=== PATIENT | male | born 2000 | race Caucasian/White ===

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

== ENCOUNTER → 2019-01-02 | Emergency (ER) | payer SELFPAY ==
[~2019-01-02] MED LIST changes: +[UNRECOGNIZED DRUG - CODE] PO
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
--- NOTE | 2019-01-02 21:31 | RADIOLOGY IMAGING REPORT ---
FACILITY: [facility] PATIENT NAME: Doug Win : 2000 MR: [id number] V: [id number] EXAM DATE: ORDERING PHYSICIAN: LY DE JESUS TECHNOLOGIST: Location: [facility] Patient: Doug Win : 2000 Visit/Account:[id number] Date of Sevice: 01/02/2019 INDICATION: fall, pain, swelling EXAM DATE: 01/02/2019 8:42 PM COMPARISON: None. FINDINGS: 3 views right hand. Mineralization is normal. No acute alignment abnormality or fracture. Abnormal m orphology of the diaphysis of the 4th metacarpal consistent with healed remote fracture. Dorsal soft tissue swelling at the level of the metacarpophalangeal joints. IMPRESSION: Dorsal soft tissue swelling with no acute osseous abnormality of the right hand. Report Dictated By: Danilo Calle MD at 01/02/2019 9:22 PM Report E-Signed By: Danilo Calle MD at 01/02/2019 9:24 PM WSN:[id number]
[2019-01-02 22:00] VITALS: BP 113/78
== END ==
LOC: ER 20:50
DX: S60.221A Contusion of right hand, initial encounter (principal); W01.198A Fall on same level from slipping, tripping and stumbling with subsequent striking against other object, initial encounter
CPT/HCPCS: 73130; 99283; L3763